=== PATIENT | female | born 1960 | race Caucasian/White ===

== ENCOUNTER 2018-10-04 16:15 | Inpatient (IN) | payer MEDICAID ==
[~2018-10-04] VITALS: Ht 175.3 cm; Wt 80.0 kg
[2018-10-04 16:21] VITALS: Ht 175.3 cm; Wt 80.0 kg
--- NOTE | 2018-10-04 16:58 | NUR ---
PT AMULATORY TO ED BED 3, STEADY GAIT, NAD NOTED.
--- NOTE | 2018-10-04 17:04 | NUR ---
LAB AT BEDSIDE.
--- NOTE | 2018-10-04 17:09 | NUR ---
XRAY AT BEDSIDE.
--- NOTE | 2018-10-04 17:16 | NUR ---
PT AMBULATED TO RESTROOM TO PROVIDE CLEAN CATCH URINE SAMPLE, SLOW AND STEADY GAIT NOTED.
[2018-10-04 17:24] LABS: BASOPHIL % 1.2 % (0-2); PLATELET COUNT 392 x10^3mcL (130-400); RED CELL DISTRIBUTION WIDTH 12.7 % (11.5-14.5)
--- NOTE | 2018-10-04 17:30 | NUR ---
DR SNOW AT BEDSIDE FOR MSE.
--- NOTE | 2018-10-04 17:32 | NUR ---
URINE DIP RESULTS REPORTED TO DR SNOW.
[2018-10-04 17:33] LABS: CALCIUM 9.7 mg/dL (8.5-10.1); CARBON DIOXIDE 23.5 mmol/L (21-32); CHLORIDE SERUM 90 mmol/L (98-107); GFR1 > 60 mL/min; GLUCOSE SERUM 440 mg/dL (74-106); POTASSIUM SERUM 3.1 mmol/L (3.5-5.1); SODIUM SERUM 129 mmol/L (136-145)
--- NOTE | 2018-10-04 17:36 | NUR ---
HGB 17.5, PRIMARY RN AWARE AND DR SNOW INFORMED OF CRITICAL.
[2018-10-04 17:40] LABS: ALBUMIN 3.2 g/dL (3.4-5.0); ALKALINE PHOSPHATASE 110 U/L (46-116); ALT/SGPT 21 U/L (14-59); AST/SGOT 16 U/L (15-37); BILIRUBIN TOTAL 0.9 mg/dL (0.20-1.00); TOTAL PROTEIN, SERUM 7.8 g/dL (6.4-8.2)
--- NOTE | 2018-10-04 17:44 | NUR ---
PT MEDICATED PER EMAR.
--- NOTE | 2018-10-04 18:00 | NUR ---
PT IS A/AX4 DENIES C/P AT THIS TIME PRIMARY NURSE IS IN ROOM WITH PT, C/L IN REACH
[2018-10-04 18:07] LABS: microscopic required? YES; urine erythrocyte 1+ (NEGATIVE)
--- NOTE | 2018-10-04 18:12 | NUR ---
PT MEDICATED PER EMAR.
--- NOTE | 2018-10-04 18:12 | NUR ---
LIGHTS TO ROOM DIMMED, AND CURTAINS CLOSED TO PROVIDE RELAXING ENVIRONMENT.
--- NOTE | 2018-10-04 18:27 | NUR ---
PT TAKEN TO CT, IV FLUIDS COMPLETED D/C PRIOR TO TRANSFER.
--- NOTE | 2018-10-04 18:39 | NUR ---
PT ON FULL CM, VS REPORTED TO DR SNOW, PT CONTINUES TO REPORT RUQ ABD PAIN. FAMILY AT BEDSIDE, IN POSITION OF COMFORT, CAROLYN RAILS RAISED FOR SAFETY.
--- NOTE | 2018-10-04 18:43 | NUR ---
DR SNOW AT BEDSIDE TO DISCUSS POC WITH PT AND FAMILY.
--- NOTE | 2018-10-04 19:01 | NUR ---
PT MEDICATED PER EMAR.
--- NOTE | 2018-10-04 19:12 | NUR ---
RECIEVED PT REPORT FROM RN, I WILL NOW ASSUME PRIMARY CARE OF PT
--- NOTE | 2018-10-04 19:14 | NUR ---
ATTEMPTED TO GIVE REPORT TO PATROL POLICE SERGEANT TO ASSUME CARE OF PT WITH NO ANSWER, TRACIE ED RN GIVEN REPORT, TO ASSUME CARE OF PT.
--- NOTE | 2018-10-04 19:37 | NUR ---
REPORT GIVEN TO ANNELIESE CARMONA TO ASSUME CARE OF PT.
--- NOTE | 2018-10-04 20:22 | NUR ---
PT WHEELED VIA ED GURNEY UPSTAIRS TO TELE FLOOR ROOM 255B FOR FURTHER CARE. PT WAS EDCORTED BY CARLOS HODGES AND TOMAS RN. NO INCIDENCE NOTED
[2018-10-04 20:25] VITALS: BP 171/115
--- NOTE | 2018-10-04 20:28 | NUR ---
RECEIVED PT FROM ED VIA DEVON. ENDORSED PT TO PRIMARY NURSE BOBBY
--- NOTE | 2018-10-04 20:30 | NUR ---
RECEIVED PT FROM MATHEW MONTOYA. PT AOX4. DENIES CHAPMAN/DIZZINESS. ON TELE #9, ST. DENIES CP/PRESSURE. DENIES SOB/DIFFICULTY BREATHING, ON RA. IV TO RAC, INTACT AND PATENT. BED IN LOWEST POSITION. CALL LIGHT WITHIN REACH. WILL CONTINUE TO MONITOR.
[2018-10-04 22:16] LABS: BASOPHIL % 0.4 % (0-2); PLATELET COUNT 365 x10^3mcL (130-400); RED CELL DISTRIBUTION WIDTH 13.1 % (11.5-14.5)
[2018-10-04 22:24] LABS: CALCIUM 9.2 mg/dL (8.5-10.1); CARBON DIOXIDE 25.3 mmol/L (21-32); CHLORIDE SERUM 95 mmol/L (98-107); CREATININE SERUM 0.9 mg/dL (0.6-1.0); GFR1 > 60 mL/min; GLUCOSE SERUM 350 mg/dL (74-106); POTASSIUM SERUM 3.7 mmol/L (3.5-5.1); SODIUM SERUM 133 mmol/L (136-145)
[2018-10-04 23:22] VITALS: BP 158/101
--- NOTE | 2018-10-04 23:33 | NUR ---
PT BP 158/101 HR 110, IVP HYDRALAZINE PRN AVAILABLE BUT INFORMED DR. TOBAR THAT IT MAY INCREASE PT HR. PER DR. TOBAR, HOLD IVP HYDRALAZINE, NO FURTHER ORDERS AT THIS TIME.
[2018-10-05] VITALS (8 sets, daily range): BP systolic 108–176; BP diastolic 56–108
--- NOTE | 2018-10-05 01:25 | NUR ---
PT HAD A SHORT RUN OF SVT, HR INCREASED TO 159. PT ASYMPTOMATIC, SLEEPING IN BED. DENIES ANY DISCOMFORT. BP 176/108 MAP 123, HR 98. DENIES CP/PRESSURE. DR. TOBAR MADE AWARE. AWAITING FURTHER ORDERS.
--- NOTE | 2018-10-05 03:26 | NUR ---
PT HAD 6 MINUTE RUN OF SVT, THEN CONVERTED BACK TO NSR, HR 94. PT ASYMPTOMATIC, SLEEPING IN BED. DENIES CP/PRESSURE. DR. TOBAR MADE AWARE. EKG ORDERED.
--- NOTE | 2018-10-05 05:16 | NUR ---
ASSUMED CARE OF PT. RESTING QUIETLY IN BED WITH EYES CLOSED, APPEARS ASLEEP, EASILY AROUSABLE. SR WITH HR 92 AT THIS TIME, PT DENIES CP OR ANY DISCOMFORT AT THIS TIME. IVF INTACT AND INFUSING VIA RAC, SITE CLEAR. CALL LIGHT WITHIN REACH. WILL CONTINUE TO MONITOR.
[2018-10-05 06:27] LABS: BASOPHIL % 0.2 % (0-2); PLATELET COUNT 363 x10^3mcL (130-400); RED CELL DISTRIBUTION WIDTH 13.2 % (11.5-14.5)
--- NOTE | 2018-10-05 07:30 | NUR ---
PT ENDORSE TO ME THIS MORNING. LAYING IN BED RESTING, AA/O X4, BREATHING EVEN AND UNLABORED ON RA, NO ACUTE RESP DISTRESS OR SOB NOTED. TELE 9 SR NOTED, DENIES ANY CP OR PRESSURE. BOWEL SOUNDS ACTIVE IN ALL FOUR QUADS, LAST BM 10/04, VOIDS FREELY, AMB. IV TO THE RAC INTACT AND PATENT, INFUSING AT 100ML/HR, NO REDNESS OR SWELLING NOTED. WILL CONTINUE TO MONITOR.
[2018-10-05 08:00] LABS: CALCIUM 8.8 mg/dL (8.5-10.1); CARBON DIOXIDE 27.2 mmol/L (21-32); CHLORIDE SERUM 100 mmol/L (98-107); CREATININE SERUM 0.7 mg/dL (0.6-1.0); GFR1 > 60 mL/min; GLUCOSE SERUM 202 mg/dL (74-106); PHOSPHOROUS 1.9 mg/dL (2.5-4.9); POTASSIUM SERUM 3.2 mmol/L (3.5-5.1); SODIUM SERUM 136 mmol/L (136-145)
--- NOTE | 2018-10-05 09:42 | NUR ---
ECHOCARDIOGRAM COMPLETED.
--- NOTE | 2018-10-05 11:30 | NUR ---
DR. RYDER MADE AWARE OF BP 175/81, HR 80, PT DENEIS ANY CP OR PRESSURE. FAMILY AT BEDSIDE. WILL CONTINUE TO MONITOR.
--- NOTE | 2018-10-05 11:54 | NUR ---
LAB CALLED TROP 0.346 DR. RYDER MADE AWARE. PT DENIES ANY CP OR PRESSURE.
--- NOTE | 2018-10-05 13:43 | NUR ---
TELE CALLED, PT HAD 12 MIN RUN OF SVT AFTER MULTIPLE ATTEMPTS OF BEARING DOWN CONVERTED BACK TO ST. CURRENT VS: 110/56 MAP 72, HR 100-103. DR. RYDER MADE AWARE. WILL CONTINUE TO MONITOR, PT DENIES ANY CP OR PRESSUR. FAMILY AT BEDSIDE.
--- NOTE | 2018-10-05 17:00 | NUR ---
PT TOLERATED 100% OF DINNER, DENIES ANY CP OR PRESSURE. WILL CONTINUE TO MONITOR.
--- NOTE | 2018-10-05 18:41 | NUR ---
NO ACUTE CHANGES AT THIS TIME, NO ACUTE RESP DISTRESS OR SOB NOTED. DENIES ANY CP OR PRESSSURE. REMAINS ON TELE 9 SR AT THIS TIME. WILL ENDORSE TO INCOMING RN.
--- NOTE | 2018-10-05 19:10 | NUR ---
RECEIVED PT FROM PREVIOUS SHIFT NURSE. PT AOX4. DENIES CHAPMAN/DIZZINESS. ON TELE #9, NSR. DENIES CP/PRESSURE. DENIES SOB/DIFFICULTY BREATHING, ON RA. IV TO RAC, INTACT AND PATENT. BED IN LOWEST POSITION. CALL LIGHT WITHIN REACH. WILL CONTINUE TO MONITOR.
[2018-10-06 01:34] LABS: AMPHETAMINE QUAL UR NONE DETECTED (See below)
--- NOTE | 2018-10-06 03:04 | NUR ---
PT RESTING IN BED. RR EVEN AND UNLABORED. IN NO ACUTE DISTRESS. CALL LIGHT WITHIN REACH. BED IN LOWEST POSITION. WILL CONTINUE TO MONITOR.
[2018-10-06 04:53] VITALS: BP 160/86
--- NOTE | 2018-10-06 06:00 | NUR ---
PT BP 160/86, HR 69. AM DOSE OF LISINOPRIL GIVEN EARLY.
[2018-10-06 06:23] LABS: CALCIUM 8.9 mg/dL (8.5-10.1); CARBON DIOXIDE 24.2 mmol/L (21-32); CHLORIDE SERUM 103 mmol/L (98-107); CHOLESTEROL 166 mg/dL (<200); CREATININE SERUM 0.8 mg/dL (0.6-1.0); GFR1 > 60 mL/min; GLUCOSE SERUM 163 mg/dL (74-106); MAGNESIUM 1.9 mg/dL (1.8-2.4); PHOSPHOROUS 2.7 mg/dL (2.5-4.9); POTASSIUM SERUM 3.2 mmol/L (3.5-5.1); SODIUM SERUM 137 mmol/L (136-145); TRIGLYCERIDES 105 mg/dL (<150)
[2018-10-06 06:29] LABS: CHOLESTEROL/HDL RATIO 4.9; HDL CHOLESTEROL 34 mg/dL (40-60)
[2018-10-06 06:38] LABS: BASOPHIL % 0.4 % (0-2); PLATELET COUNT 349 x10^3mcL (130-400); RED CELL DISTRIBUTION WIDTH 13.1 % (11.5-14.5)
--- NOTE | 2018-10-06 07:30 | NUR ---
PT ENDORSE TO ME THIS MORNING, AA/O X4 BREATHING EVEN AND UNLABORED ON RA, NO ACUTE RESP DISTRESS OR SOB NOTED. TELE 9 SR NOTED, HR 78, DENIES ANY CP OR PRESSURE. BOWEL SOUNDS ACTIVE IN ALL FOUR QUADS. IS C/O OF FEELING NAUSEOUS, WILL MEDICATED PER EMAR. VOIDS FREELY, AMB. IV TO THE RAC INTACT AND PATENT INFUSING AT 100ML/HR, NO REDNESS OR SWELLING NOTED. WILL CONTINUE TO MONITOR.
[2018-10-06 08:35] VITALS: BP 174/96
[2018-10-06 13:21] VITALS: BP 132/78
--- NOTE | 2018-10-06 14:30 | NUR ---
NEW IV TO THE R HAND PLACE/ PATENT AND INTACT.
--- NOTE | 2018-10-06 14:40 | NUR ---
PT TOLERATED 50% OF HER LUNCH. ALSO PROVIDED X2 SUGAR FREE JELLOS. FAMILY AT BEDSIDE.
--- NOTE | 2018-10-06 15:30 | NUR ---
DR. ERICKSON AT BEDSIDE TALKING WITH PATIENT AND FAMILY.
[2018-10-06 16:51] VITALS: BP 137/81
--- NOTE | 2018-10-06 18:32 | NUR ---
NO ACUTE CHANGES AT THIS TIME, NO ACUTE RESP DISTRESS OR SOB NOTED. DENIES ANY CP OR PRESSURE, REMAINS ON TELE 9 SHOWING SR, HR 79. PT IS AWARE OF STRESS TEST TOMORROW MORNING. TOLERATED 60% OF DINNER, DENIES ANY N/V AT THIS TIME. WILL ENDORSE TO INCOMING RN.
--- NOTE | 2018-10-06 19:20 | NUR ---
RECEIVED PT FROM PREVIOUS SHIFT NURSE. PT AOX4, DENIES CHAPMAN/DIZZINESS. TELE #9, NSR WITH DEPRESSED T WAVE AND PVCS, DENIES CP/PRESSURE. DENIES SOB/DIFFICULTY BREATHING, ON RA. IV TO R. HAND, INTACT AND PATENT. BED IN LOWEST POSITION. CALL LIGHT WITHIN REACH. WILL CONTINUE TO MONITOR.
[2018-10-06 20:44] VITALS: BP 130/67
--- NOTE | 2018-10-07 02:17 | NUR ---
PT RESTING IN BED. RR EVEN AND UNLABORED. IN NO ACUTE DISTRESS. CALL LIGHT WITHIN REACH. BED IN LOWEST POSITION. WILL CONTINUE TO MONITOR.
[2018-10-07 05:47] VITALS: BP 140/77
--- NOTE | 2018-10-07 06:39 | NUR ---
PT BLOOD SUGAR 213, PT NPO FOR STRESS TEST. PER JENNIFER REED TO GIVE 3 UNITS HUMULIN R.
--- NOTE | 2018-10-07 07:59 | NUR ---
RECEIVED PATIENT FROM NIGHT NURSE. AWAKE, ALERT AND ORIENTED. MONITOR SHOWING SINUS RHYTHM; RATE 70'S. NO ECTOPIES NOTED. DENIES ANY CHEST PAIN. IV INFUSING NS AT 100 ML/HR. NPO FOR STRESS TEST AT 1100.
[2018-10-07 08:52] VITALS: BP 151/91
[2018-10-07] MEDS ORDERED: LIPITOR20 MG PO (10:02)
[2018-10-07] MEDS ORDERED: COR6 PO (10:02)
[2018-10-07] MEDS ORDERED: GOOD SENSE OMEP20 MG PO (10:02)
[2018-10-07] MEDS ORDERED: GLUCOPHAGE500 MG PO (10:02)
[2018-10-07] MEDS ORDERED: LISINOPRIL10 MG PO (10:02)
[2018-10-07] MEDS ORDERED: ASPIRIN ADULT L81 M5 PO (10:03)
[2018-10-07] MEDS ORDERED: ACCU-CHEK COMB1 EACH MC (10:04)
--- NOTE | 2018-10-07 10:08 | NUR ---
AT 0950 - PATIENT C/O NAUSEA. MEDICATED WITH ZOFRAN PER EMAR. NUCLEAR MED STAFF AT BEDSIDE.
--- NOTE | 2018-10-07 10:29 | NUR ---
REPORTS SOME RELIEF OF NAUSEA. FAMILY AT BEDSIDE.
--- NOTE | 2018-10-07 11:04 | NUR ---
TAKEN TO NUCLEAR MED FOR STRESS TEST.
--- NOTE | 2018-10-07 13:28 | NUR ---
BACK IN ROOM FOLLOWING STRESS TEST. EATING LUNCH.
--- NOTE | 2018-10-07 14:40 | NUR ---
DR ERICKSON AT BEDSIDE SPEAKING WITH PATIENT.
--- NOTE | 2018-10-07 18:19 | NUR ---
AT 1630 - DR CARVALHO SPOKE WITH PATIENT AND SISTER ABOUT RESULTS OF STRESS TEST AND RECOMMENDATIONS FOR ANGIOGRAM. PATIENT STAYING IN [facility] TODAY. IV INFUSION OF NS RESUMED AT 100ML/HR. AT 1700 - BLOOD GLUCOSE LEVEL 244. GIVEN REGULAR INSULIN 6 UNITS PER EMAR. AT 1720 - BP 200/99. PATIENT GIVEN LISINOPRIL AND CARVEDILOL PER EMAR. MONITOR SHOWING SINUS RHYHTM; RATE 80'S. CONTINUING TO MONITOR.
[2018-10-07 18:42] VITALS: BP 133/76
--- NOTE | 2018-10-07 19:21 | NUR ---
SHIFT REASSESSMENT DONE.PATIENT ALERT AND ORIENTED.NOT IN RESP DISTRESS.PATIENT ALERT AND ORIENTED.MAKE NEEDS KNOWN TO STAFF.BREATHING EASY.NS AT 100 CC/ HOUR R HAND,IV SITE GOOD.TELE 9 SR.SKIN INTACT.SCD ORDERED.AMBULATORY,GEN WEAKNESS.CALL LIGHT IN REACH.
--- NOTE | 2018-10-07 20:18 | NUR ---
PM MEDS GIVEN,SWALLOWS WELL.PATIENT IVF INFUSING WELL.
[2018-10-07 20:43] VITALS: BP 134/72
[2018-10-08] VITALS (7 sets, daily range): BP systolic 133–188; BP diastolic 60–89
--- NOTE | 2018-10-08 04:52 | NUR ---
CHECKED AT INTERVALS FOR NEEDS AND SAFETY.
--- NOTE | 2018-10-08 05:59 | NUR ---
I AND O MEASURED.NO MAJOR CHANGES THIS SHIFT.WILL ENDORSE TO NEXT SHIFT.
--- NOTE | 2018-10-08 07:00 | NUR ---
REPORT RCD FROM MATHEW JASSO. PATIENT AWAKE, LYING SUPINE, NO DISTRESS NOTED. NS 100 ML/HR TO RIGHT HAND INFUSING WITHOUT COMPLICATIONS. BED LOW, CALL LIGHT WITHIN REACH. WILL MONITOR.
--- NOTE | 2018-10-08 07:30 | NUR ---
SHIFT ASSESSMENT PERFORMED AND DOCUMENTED.
[2018-10-08 08:30] LABS: PLATELET COUNT 354 x10^3mcL (130-400); RED CELL DISTRIBUTION WIDTH 13.5 % (11.5-14.5)
[2018-10-08 08:40] LABS: CALCIUM 9.2 mg/dL (8.5-10.1); CARBON DIOXIDE 24.6 mmol/L (21-32); CHLORIDE SERUM 103 mmol/L (98-107); CREATININE SERUM 0.8 mg/dL (0.6-1.0); GFR1 > 60 mL/min; GLUCOSE SERUM 204 mg/dL (74-106); POTASSIUM SERUM 3.2 mmol/L (3.5-5.1); SODIUM SERUM 138 mmol/L (136-145)
--- NOTE | 2018-10-08 11:00 | NUR ---
SPOKE WITH ROSIE JEFFREY REGARDING PATIENT'S ELEVATED BP. AFTER MORNING BP MEDICATIONS PER MAY, PATIENT'S BP 188/102 ON RECHECK. AWAITING ORDERS.
--- NOTE | 2018-10-08 12:30 | NUR ---
ROSIE JEFFREY INFORMED OF PATIENT'S REPEAT BP AFTER SECOND DOSE OF LISINOPRIL, 188/89, HR 78. AWAITING ORDERS.
--- NOTE | 2018-10-08 14:03 | NUR ---
RECHECK OF BP AFTER HYDRALAZINE BP 137/76, HR 85. FAMILY AT BEDSIDE. PATIENT IN NO DISTRESS, NO NEEDS AT THIS TIME.
--- NOTE | 2018-10-08 15:36 | NUR ---
1. Recommend continuing [facility] diet. 2. Diabetes Diet education provided.
--- NOTE | 2018-10-08 15:36 | NUR ---
Initial Nutrition Assessment: 253T/B GIDEON CARTER HR Dx: Dehydration, new onset DM PMHx: None PSHx: Cholecystectomy Labs: BG 204H, K 3.2L, A1C 10.9H, WBC 13.6H Meds: Colace, Glucophage, humulin, Lipitor, zofran Diet: CCHO PO Intake: (10/08) 90%, (10/07) lunch 40%, dinner 90%, (10/06) lunch, dinner 100% Ht: 175.26 cm (69") Wt: 80 kg (176#) BMI: 26 kg/m2 Bed scale: IBW: 145# (66 kg) %IBW: 121 UBW: 165-175# Age: 57/F Food Allergies: NKFA Skin: intact Maninder: 21 Edema: none GI: Last BM: 10/06 Per H&P, Pt is a 57 year old female with no significant PMH, came in complaining of abdominal pain and generalized weakness. Associated with frontal headache, dizziness, nausea and around 20 episodes of vomiting, with no blood, and 1 episode of watery stools on Sunday, and no blood noted. Patient states she has just been on fluid diet since Sunday. RDN Visit (10/08): Per bed huddles, patient has abnormal lexiscan, possible HLOC transfer. Problem with: N/V/D/C: none Problems with: Chewing/Swallowing: none Current appetite: fair, slowly improving Recent wt change: none %wt change: N/A Vitamin/Supplement use: none Special diet at home: regular Physical activity: Nutrition education given: Patient said that her mom had DM and so she is aware about the diabetic diet. Diabetes diet education was provided using [facility] handout on 'Type 2 Diabetes Nutrition Therapy'. Concepts like high fiber diet, label reading, types of carbohydrates and portion control were discussed. Patient verbalized understanding and did not have any questions at this time. Food-drug interactions: lipitor- avoid grapefruit Education given: Estimated Nutritional Needs Based on ideal body weight 66 kg Energy: 9770-0035 kcal/d (25-30 kcal/kg) Protein: 66-79 g/d (1.0-1.2 g/kg) - preserve LBM Fluid: 8242-9510 ml/d (1 ml/kcal) or per doctor Nutrition Diagnosis 1. Impaired nutrient utilization related to endocrine dysfunction as evidenced by A1C:10.9 Intervention 1. Recommend continuing [facility] diet. 2. Diabetes Diet education provided. Monitor/Evaluate Goal: PO intake at least 75% of estimated needs Monitor: PO intake, Labs, GI function F/U in 3-5 days as moderate risk 8/2-4
--- NOTE | 2018-10-08 18:40 | NUR ---
PATIENT BEING TRANSFERRED TO HIGHER LEVEL OF CARE AT [facility], ROOM 336B, TELE 3, STATION 2. REPORT CALLED TO MATHEW REINOSO, , RECEIVING DOCTOR DR. SHARIF. [facility] TO ATHLETE MANAGER AT 8 PM. PATIENT SIGNED TRANSFER ACKNOWLEDGEMENT AND REVIEWED DISCHARGE PACKET WITH HER. PATIENT IN NO ACUTE DISTRESS, VITAL SIGNS STABLE. SALINE LOCK TO RIGHT HAND IS PATENT.
--- NOTE | 2018-10-08 19:38 | NUR ---
REPORT GIVEN TO MATHEW ASKEW. PATIENT TO BE TRANSFERRED TO [facility] RECREATION COORDINATOR AT 8 PM. PATIENT IN NO ACUTE DISTRESS. NS 100 ML/HR INFUSING TO RIGHT HAND WITHOUT COMPLICATIONS. BED LOW, CALL LIGHT WITHIN REACH. CARE ENDORSED.
--- NOTE | 2018-10-08 19:56 | NUR ---
RECEIVED THE REPORT FROM MORNING SHIFT, PT IS A/O X4, VERBAL RESPONSIVE, DENY ANY RESPIRATORY DISTRESS, DENY ANY PAIN OR DISCOMFORT, RIGHT HAND, NO LEAKING, NO INFILTRATION. ALL ADLS ASSIST, ALL NEED MET, CALL LIGHT IN REACH, WILL CONTINUE TO MONITOR.
--- NOTE | 2018-10-08 20:49 | NUR ---
WORM GROWER CAME TO [facility]AMOND EXPERT THE PT. GAVE THE REPORT TO WORM GROWER. AND ALL TRANSFER DOCUMENTS TO WORM GROWER. PT IS A/O X4, DENY ANY RESPIRATORY DISTRESS AT THIS MOMENT, DENY ANY PAIN OR DISCOMFORT, IV AT RIGHT HAND, NO LEAKING, NO INFILTRAITON. GETTING READY TO TRANSFER.
== END 2018-10-08 20:55 | disposition short-term general hospital (02) | DRG 422 ==
LOC: ED 16:15 → DU 18:28 → MU 10-08 11:58 → DU 10-08 12:03
PROVIDERS: Emergency Medicine; Internal Medicine; ADMIT General Practice
DX: E86.0 Dehydration (principal); I21.A1 Myocardial infarction type 2; I42.9 Cardiomyopathy, unspecified; E44.0 Moderate protein-calorie malnutrition; E11.65 Type 2 diabetes mellitus with hyperglycemia; I47.1 Supraventricular tachycardia; I11.9 Hypertensive heart disease without heart failure; E87.1 Hypo-osmolality and hyponatremia; E87.6 Hypokalemia; Z68.29 Body mass index [BMI] 29.0-29.9, adult; Z79.84 Long term (current) use of oral hypoglycemic drugs
CPT/HCPCS: 82962; A9500; G0378; J0360; J1815; J2405; J2785; J7030; Q0092

== ENCOUNTER 2018-11-24 15:39 | Inpatient (IN) | payer MEDICAID ==
[~2018-11-24] VITALS: Ht 175.3 cm; Wt 78.6 kg
[~2018-11-24 15:39] MED LIST: ACCU-CHEK COMB1 EACH MC; ASPIRIN ADULT L81 M5 PO; COR6 PO; GLUCOPHAGE500 MG PO; GOOD SENSE OMEP20 MG PO; LIPITOR20 MG PO; LISINOPRIL10 MG PO
[2018-11-24 16:01] VITALS: Ht 175.3 cm; Wt 78.6 kg
--- NOTE | 2018-11-24 16:53 | NUR ---
PT PRESENTS TO THE ED WITH C/C OF VOMITTING X4 DAYS. PT STATES SHE "CAN'T KEEP ANYTHING DOWN". PT ALSO REPORTS "MILD" RIGHT LOWER QUADRANT PAIN, AT 3/10 X3 DAYS. PT STATES SHE HAS NOT HAD A BM SINCE SUN BECAUSE SHE HAS BEEN UNABLE TO EAT SINCE THE VOMITTING OCCURRED. PT DENIES INJURY OR TRAUMA TO ABDOMEN. PT HAS A HX OF DIABETES AND HIGH BP. PT IS AWAKE, LAYING IN GURNEY, AAOX4, RESP E/U, NAD NOTED. MSE COMPLETED BY DR. CHOUDHARY.
[2018-11-24 17:24] LABS: BASOPHIL % 0.1 % (0-2); PLATELET COUNT 342 x10^3mcL (130-400); RED CELL DISTRIBUTION WIDTH 13.2 % (11.5-14.5)
[2018-11-24 17:33] LABS: CALCIUM 9.7 mg/dL (8.5-10.1); CARBON DIOXIDE 27.7 mmol/L (21-32); CREATININE SERUM 1.2 mg/dL (0.6-1.0); POTASSIUM SERUM 3.3 mmol/L (3.5-5.1)
[2018-11-24 17:36] LABS: UA SPECIFIC GRAVITY >=1.030 (1.005-1.035); microscopic required? YES; urine erythrocyte 3+ (NEGATIVE)
[2018-11-24 17:38] LABS: ALBUMIN 3.5 g/dL (3.4-5.0); BILIRUBIN TOTAL 1.2 mg/dL (0.20-1.00); TOTAL PROTEIN, SERUM 8.2 g/dL (6.4-8.2)
--- NOTE | 2018-11-24 18:07 | NUR ---
PT MEDICATED PER MD ORDER. PT VERBALIZED UNDERSTANDING OF MEDICATION PRIOR TO ADMINISTRATION.
--- NOTE | 2018-11-24 18:10 | NUR ---
PT'S BP IS ELEVATED, 185/113, DR. CHOUDHARY MADE AWARE. PER DR. CHOUDHARY REEVALUATE BP IN 30 MIN.
--- NOTE | 2018-11-24 18:51 | NUR ---
PT RESTING ON ED GURNEY, RESPS E/U, NAD NOTED, CALL LIGHT WITHIN REACH, IN POSITION OF COMFORT, REPORTS A DECREASE IN NAUSEA AT THIS TIME. CAROLYN RAILS RAISED FOR SAFETY.
[2018-11-24 19:29] LABS: AMPHETAMINE QUAL UR NONE DETECTED (See below)
--- NOTE | 2018-11-24 19:30 | NUR ---
REPORT CALLED TO MATHEW ALLEN TO ASSUME CARE FOR PT.
--- NOTE | 2018-11-24 19:55 | NUR ---
PT MEDICATED PER MD ORDER. PT VERBALIZED UNDERSTANDING OF MEDICATION PRIOR TO ADMINISTRATION.
--- NOTE | 2018-11-24 19:58 | NUR ---
MATHEW ALLEN CALLED TO UPDATE HIM ON NEW MEDS ORDERED FOR PT BY DR. CHOUDHARY, INFORMED THAT MAINTENANCE FLUIDS RUNNING AT 200MLS/HR AND 8U OF HUMULIN R SQ WAS GIVEN.
--- NOTE | 2018-11-24 20:01 | NUR ---
NOTIFIED BY [employer] JANINE THAT BIRD KEEPER TIFFANY LET HER KNOW THAT PT'S CURRENT BP WAS "TOO HIGH FOR THEM TO ACCEPT ON THE FLOOR" WILL NOTIFY RESIDENT MD.
--- NOTE | 2018-11-24 20:11 | NUR ---
RECEIVED CALL BACK FROM DR. PINEDA, MADE AWARE OF BP, IV HYDRALAZINE TO BE GIVEN.
--- NOTE | 2018-11-24 20:24 | NUR ---
PT MEDICATED PER MD ORDER. PT VERBALIZED UNDERSTANDING OF MEDICATION PRIOR TO ADMINISTRATION.
--- NOTE | 2018-11-24 20:33 | NUR ---
PT'S BP WAS RECHECKED AFTER ADMINISTRATION OF 10MG OF HYDRALAZINE, BP IS NOW 145/75. CHILD PROTECTIVE SERVICES SOCIAL WORKER TIFFANY MADE AWARE, PT TO TRANSFERRED TO MED SURG.
--- NOTE | 2018-11-24 20:53 | NUR ---
PT TRANSFERRED BY EMT MARTHA, VIA GURNEY TO MED SURG. PT AWAKE, AAOX4, RESP E/U, NAD NOTED.
[2018-11-24 21:04] VITALS: BP 167/95
--- NOTE | 2018-11-24 21:07 | NUR ---
RECEIVED PT FROM ED VIA DEVON. ORIENTED PT TO ROOM AND SURROUNDINGS. IV NOTED TO LH PATENT AND INTACT. TELE 7 PLACED ON PT READING ST WITH DEPRESSED ST SEGMENT. INSTRUCTED PT ON THE USE OF CALL LIGHT FOR ASSISTANCE. ENDORSED PT TO PRIMARY NURSE TIFFANY
--- NOTE | 2018-11-24 21:25 | NUR ---
TALKED TO DR CLEMENS ABOUT PATIENTS BLOOD SUGAR OF 156, PT RECIEVED 8 UN[address] ER SO DR SAID HOLD ON THE INSULIN COVERAGE. DR CLEMENS ALSO SAID THAT SHE WANTS PT TO BE FULL LIQUID CCHO DIET FOR NOW AND THAT BROTH WOULD BE GOOD TO GIVE TO PATIENT.
--- NOTE | 2018-11-24 22:00 | NUR ---
PT PROVIDED WITH BROTH AND JELLO, PT TOLERATING WELL, WILL MONITOR
[2018-11-25] VITALS (8 sets, daily range): BP systolic 120–190; BP diastolic 63–104
--- NOTE | 2018-11-25 01:05 | NUR ---
PT REPORTS MILD NAUSEA, ADMINISTERED ZOFRAN PRN PER PHYSICIANS ORDER, WILL CONTINUE TO MONITOR
--- NOTE | 2018-11-25 04:20 | NUR ---
PT BP 189/104, PT ASYMPTOMATIC, DR CLEMENS INFORMED AND ORDERED HYDRALAZINE IV X1
--- NOTE | 2018-11-25 05:21 | NUR ---
PT RESTED IN BED SINCE ADMISSION WITH NO ACUTE DISTRESS, PTN HAD ONE EPISODE OF NAUSEA THAT RESOLVED WITH PRN ADMINISTRATION OF ZOFRAN, PT HAD EPISODES OF HYPERTENSION THAT WERE ASYMPTOMATIC AND TREATED WITH HYDRALAZINE IV. PT DENIED ANY PAIN OR SOB THROUGH SHIFT, ALL NEEDS ATTENDED TO WILL CONTINUE TO MONITOR AND ENDORSE CARE
--- NOTE | 2018-11-25 05:30 | NUR ---
PT BLOOD PRESSURE STILL 179/83 PT ASYMPTOMATIC, CONTACTED DR CLEMENS AND INFORMED HER, SHE SAID TO GIVE MORNING BP MED EARLY (COREG AND LISINOPRIL, SEE MAR)
--- NOTE | 2018-11-25 06:44 | NUR ---
TALKED TO DR VALVERDE AND INFORMED HER OF COURSE OF PATIENTS BLOOD PRESSURE READINGS AND WHAT MEDICATIONS I HAVE GIVEN HER, SHE INFORMED ME IT WAS OK FOR PATIENT TO RECIEVE SCHEDULED 0900 BP MEDS, WILL ENDORSE TO ONCOMING RN
[2018-11-25 06:47] LABS: BASOPHIL % 0.4 % (0-2); CALCIUM 8.7 mg/dL (8.5-10.1); CARBON DIOXIDE 25.3 mmol/L (21-32); CHLORIDE SERUM 100 mmol/L (98-107); CREATININE SERUM 0.9 mg/dL (0.6-1.0); GFR1 > 60 mL/min; GLUCOSE SERUM 181 mg/dL (74-106); MAGNESIUM 1.6 mg/dL (1.8-2.4); PHOSPHOROUS 2.1 mg/dL (2.5-4.9); PLATELET COUNT 320 x10^3mcL (130-400); POTASSIUM SERUM 3.1 mmol/L (3.5-5.1); RED CELL DISTRIBUTION WIDTH 13.3 % (11.5-14.5); SODIUM SERUM 136 mmol/L (136-145)
--- NOTE | 2018-11-25 07:34 | NUR ---
A+OX4, NO RESPRIATORY DISTRESS NOTED, TELE 7, DENIES N/V AT THIS TIME, TELE 7, PULSES MODERATE AND EQUAL CAROLYN, NO EDEMA NOTED, YU GOSUNDS CTA, TOELRATING RA, BOWEL SOUNDS ACTIVE, VOIDING FREELY, GENERALIZED WEAKNESS, SKIN INTACT, IV IN L HAND WITH NS @ 100 ML/HR, SITE WNL.
--- NOTE | 2018-11-25 08:58 | NUR ---
PT RESTING IN BED, NO RESPIRATORY DISTRESS NOTED, DENIES PAIN, COMPLAINING OF NAUSEA, SCHEDULED REGLAN IVP GIVEN, HYDRALAZINE PO PRN GIVEN FOR BP 173/103. CALL LIGHT WITHIN REACH.
--- NOTE | 2018-11-25 11:12 | NUR ---
PT RESTING IN BED, NO RESPIRATORY DISTRESS NOTED, DENIES PAIN, DENIES NAUSEA, CALL LIGHT WITHIN REACH.
--- NOTE | 2018-11-25 12:11 | NUR ---
PT COMPLAINING OF NAUSEA, REGLAN IVP GIVEN, NO RESPIRATORY DISTRESS NOTED, TELE7 REMOVED AND RETURNED TO [place] LIGHT WITHIN REACH.
--- NOTE | 2018-11-25 12:28 | NUR ---
DR JARAMILLO NOTIFIED OF BP /.
--- NOTE | 2018-11-25 13:25 | NUR ---
PT RESTING IN BED, NO RESPIRATORY DISTRESS NOTED, APPEARS TO BE SLEEPING, CALL LIGHT WITHIN REACH. DR JARAMILLO REMINDED THAT PT BP 190/63.
--- NOTE | 2018-11-25 14:22 | NUR ---
PT GIVEN CLONIDINE PO FOR BP 196/63, NO RESPRIATORY DISTRESS NOTED, DENIES CHEST PAIN, CALL LIGHT WITHIN REACH.
--- NOTE | 2018-11-25 16:35 | NUR ---
PT RESTING IN BED, NO RESPRIATORY DISTRESS NOTED, DENIES PAIN, COMPLAINING OF NAUSEA, REGLAN IVP GIVEN, CALL LIGHT WITHIN REACH.
--- NOTE | 2018-11-25 16:36 | NUR ---
DR JARAMILLO NOTIFIED OF BP 130/77. PER DR JARAMILLO, PT WILL NOT BE DC TODAY. PT AWARE.
--- NOTE | 2018-11-25 16:55 | NUR ---
INFORMED SISTER KORI THAT PT WILL NOT BE DC TODAY.
--- NOTE | 2018-11-25 17:17 | NUR ---
Discount pharmacy card and list to low cost medical clinics given to patient by Kelly Canchola.
--- NOTE | 2018-11-25 18:42 | NUR ---
PT RESTING IN BED, NO RESPIRATORY DISTRESS NOTED, DENIES PAIN, DENIES NAUSEA, CALL LIGHT WITHIN REACH.
--- NOTE | 2018-11-25 19:21 | NUR ---
ENDORSED CARE TO LORENZO CARMONA.
--- NOTE | 2018-11-25 19:25 | NUR ---
RECEIVED PT AWAKE ALERT AND VERBALLY RESPONSIVE.DENIES ANY PAIN AT THIS TIME.DENIES HEADACHE OR DIZZINESS.DENIES CHESTPAIN.LATEST BP 120/64 MMHG,HR 82.NO N/V NOTED AT THIS TIME.WILL CONTINUE TO MONITOR.
--- NOTE | 2018-11-26 04:35 | NUR ---
PT WITH ON AND OFF SLEEPING PATTERN.NO N/V ALL NIGHT.LOOSE STOOL X1.DENIES ANY PAIN ALL NIGHT.ALL NEEDS MET.WILL CONTINUE TO MONITOR.
[2018-11-26 04:48] VITALS: BP 152/71
--- NOTE | 2018-11-26 05:23 | NUR ---
LATEST BP 152/71 MMHG.BS THIS AM @ 159 MG/DL.WILL COVER WITH 3 UNITS REGULAR INSULIN.WILL CONTINUE TO MONITOR.
[2018-11-26 06:47] LABS: BASOPHIL % 0.7 % (0-2); PLATELET COUNT 249 x10^3mcL (130-400); RED CELL DISTRIBUTION WIDTH 13.6 % (11.5-14.5)
[2018-11-26 07:13] LABS: CALCIUM 8.4 mg/dL (8.5-10.1); CARBON DIOXIDE 25.2 mmol/L (21-32); CHLORIDE SERUM 104 mmol/L (98-107); CREATININE SERUM 0.7 mg/dL (0.6-1.0); GFR1 > 60 mL/min; GLUCOSE SERUM 159 mg/dL (74-106); MAGNESIUM 1.8 mg/dL (1.8-2.4); POTASSIUM SERUM 3.7 mmol/L (3.5-5.1); SODIUM SERUM 138 mmol/L (136-145)
--- NOTE | 2018-11-26 07:51 | NUR ---
A+OX4, NO RESPRIATORY DISTRESS NOTED, DENIES PAIN, DENIES NAUSEA, MEDSURG, PULSES MODERATE AND EQUAL CAROLYN, NO EDEMA NOTED, LUNG SOUINDS CTA, TOELRATING RA, BOWEL SOUNDS ACTIVE, VOIDING FREELY, GENERALIZED WEAKNESS, SKIN INTACT, IV IN L HAND WITH NS @ 100 ML/HR, SITE WNL.
[2018-11-26 09:23] VITALS: BP 140/69
[2018-11-26 10:17] VITALS: BP 140/69
--- NOTE | 2018-11-26 10:47 | NUR ---
PT GIVEN DC INSTRUCTIONS AND VERBALIZED UNDERSTANDING, ALL QUESTIONS AND CONCERNED ANSWERED. IV REMOVED WITH CATHETER INTACT, NO SWELLING OR ERYTHEMA TO SITE, GAUZE AND TAPE PLACED ON SITE. PT MEDSURG WITH NO TELE. PT OFF UNIT VIA WC WITH ALL BELONGINGS ESCORTED BY TELEGRAPHIC TYPEWRITER MECHANIC AND FAMILY.
== END 2018-11-26 10:51 | disposition home or self-care (01) | DRG 48 ==
LOC: ED 15:39 → DU 19:09 → MU 19:09 → DU 20:55 → MU 11-25 12:12
PROVIDERS: Emergency Medicine; ADMIT Internal Medicine
DX: E11.43 Type 2 diabetes mellitus with diabetic autonomic (poly)neuropathy (principal); N17.0 Acute kidney failure with tubular necrosis; K31.84 Gastroparesis; E11.65 Type 2 diabetes mellitus with hyperglycemia; E87.6 Hypokalemia; E87.1 Hypo-osmolality and hyponatremia; I16.0 Hypertensive urgency; E86.0 Dehydration; E87.8 Other disorders of electrolyte and fluid balance, not elsewhere classified; E78.5 Hyperlipidemia, unspecified; Z79.82 Long term (current) use of aspirin; Z68.26 Body mass index [BMI] 26.0-26.9, adult; Z79.84 Long term (current) use of oral hypoglycemic drugs
CPT/HCPCS: 36600; 82962; G0378; J0360; J1815; J2405; J2765; J3490; J7030; Q0092

== ENCOUNTER 2018-12-01 00:26 | Inpatient (IN) | payer MEDICAID ==
[~2018-12-01] VITALS: Ht 162.6 cm; Wt 83.3 kg
--- NOTE | 2018-12-01 00:42 | NUR ---
PT IN ED FOR GEN WEAKNESS, PER SISTER PT WAS RECENTLY D/C AFTER BEING ADMITTED FOR GASTROPARESIS. REPORTS WAS DECENTLY DX WITH DM. PT IS PALE AND STS IS WEAK. PER SISTER PT HAD POSSIBLE SYNCOPAL EPISODE TODAY. PT CONNECTED TO FULL CM. EKG IN PROGRESS AT THIS TIME. PT STS NO PAIN, NO DIZZINESS.
[2018-12-01 01:04] LABS: PLATELET COUNT 179 x10^3mcL (130-400); RED CELL DISTRIBUTION WIDTH 13.9 % (11.5-14.5)
[2018-12-01 01:15] LABS: CALCIUM 7.8 mg/dL (8.5-10.1); CARBON DIOXIDE 22.1 mmol/L (21-32); CREATININE SERUM 2.9 mg/dL (0.6-1.0); POTASSIUM SERUM 3.2 mmol/L (3.5-5.1)
[2018-12-01 01:17] LABS: BAND NEUTROPHIL 6 % (0-10); METAMYELOCTE 1 % (0-2); MONOCYTE 3 % (0-7); SEGMENTED NEUTROPHILS 86 % (37-75)
[2018-12-01 01:19] LABS: PLATELET MORPHOLOGY PLATELETS NORMAL; acanthocyte (spur cell) 3+; rbc morphology (normal/abnorm) ABNORMAL (NORMAL)
[2018-12-01 01:20] LABS: BILIRUBIN TOTAL 0.86 mg/dL (0.20-1.00)
[2018-12-01 01:21] LABS: ALBUMIN 2.4 g/dL (3.4-5.0); TOTAL PROTEIN, SERUM 5.6 g/dL (6.4-8.2)
[2018-12-01 02:16] LABS: T4(THYROXINE) 7.8 ug/dL (4.7-13.3)
[2018-12-01 02:17] LABS: microscopic required? YES; urine erythrocyte 3+ (NEGATIVE)
--- NOTE | 2018-12-01 02:59 | NUR ---
PATIENT IS GAGING WITH EFFORT TO SWALLOW THE POTASSIUM PILL. FAMILY REQUEST THE LIQUID. SAME WAS CHANGED TO LIQUID AND THE PATIENT WAS GIVEN ZOFRAN FIRST.
--- NOTE | 2018-12-01 04:42 | NUR ---
RECEIVED PT FROM ER, ACCOMPANIED BY MYSELF AND EMT KUMAR. ARRIVED VIA GUERNEY AND TRANSFERRED TO ICU BED 5 WITH FULL ASSIST AND ATTACHED TO FULL MANAGER CLUB AND CONTINUOUS PULSE OXIMETRY. RECEIVED PT AOX4 ABLE TO RESPOND TO COMMANDS, MAKE NEEDS KNOWN. PUPILS 4MM BRISK RESPONSE TO LIGHT B/L, PERRLA. SPEECH CLEAR, NO FACIAL DROOP NOTED.TRACHEA MIDLINE, NO DRAINAGE TO EENT. NO EENT COMPLAINTS.LUNG SOUNDS DIMINISHED BILATERALLY, CHEST RISE/FALL SYMMETRIC, E/U BREATHING, NO ACUTE RESP DISTRESS, DENIES SOB. PT ON 2LPM NASAL CANNULA INTACT TO PATIENT.S1/S2 SOUNDS, NO S/S AND PT DENIES CHEST PAIN. NSR ON MONITOR. SKIN COLOR CONSISTENT/PALE WITH ETHNICITY, PULSES MODERATE X4 EXTREMITIES, CAP REFILL <3 SEC X4 EXTREMITIES. NO EDEMA. BOLUS INFUSING FROM ER, VANCOMYCIN @ 133 ML/HR FROM ER, MAGNESIUM GTT INFUSING @ 25 ML/HR FROM ER.GEN WEAKNESS REPORTED. NO CONTRACTURES/DEFORMITIES NOTED, NO JOINT SWELLING/TENDERNESS, INTACT.HYPOACTIVE BOWEL SOUNDS X4 QUADRANTS, ABD SOFT/ROUND, BM REPORTED LAST SUNDAY SOFT BROWN BM. PT DENIES ABD PAIN OR DISCOMFORT. NO BM AT THIS TIME.PALACIO CATHETER DRAINING TO GRAVITY CLOUDY URINE, INTACT/SECURED TO PT. POOR URINE OUTPUT FROM PALACIO.SKIN INTACT, WARM/DRY TO TOUCH. BLANCHABLE REDNESS TO PT'S SACRUM, OPTIFOAM PLACED FOR PROTECTION, CDI. BED AT LOWEST SETTING, CALL LIGHT WITHIN REACH, HOB ELEVATED 30 DEGREES. WILL CONT TO MONITOR.
--- NOTE | 2018-12-01 04:42 | NUR ---
REPORT WAS GIVEN TO BERENICE: PATIENT TRANSPORTED TO ICU # [id number]
[2018-12-01 04:51] VITALS: BP 103/64
--- NOTE | 2018-12-01 05:28 | NUR ---
HOME SUPERVISOR ARIELLE AT BEDSIDE FOR BLOOD DRAW.
[2018-12-01 05:55] LABS: PLATELET COUNT 196 x10^3mcL (130-400)
[2018-12-01 06:03] LABS: BAND NEUTROPHIL 6 % (0-10); METAMYELOCTE 1 % (0-2); MONOCYTE 3 % (0-7); PLATELET MORPHOLOGY PLATELETS NORMAL; SEGMENTED NEUTROPHILS 86 % (37-75); acanthocyte (spur cell) 3+; rbc morphology (normal/abnorm) ABNORMAL (NORMAL)
[2018-12-01 06:09] LABS: CARBON DIOXIDE 22.6 mmol/L (21-32); CREATININE SERUM 2.6 mg/dL (0.6-1.0); MAGNESIUM 1.7 mg/dL (1.8-2.4); POTASSIUM SERUM 3.2 mmol/L (3.5-5.1)
[2018-12-01 06:18] LABS: AMPHETAMINE QUAL UR NONE DETECTED (See below)
--- NOTE | 2018-12-01 07:07 | NUR ---
GAVE REPORT TO ANGELICA CARMONA. UPDATES GIVEN, QUESTIONS ANSWERED. ENDORSED CARE.
--- NOTE | 2018-12-01 07:15 | NUR ---
PATIENT IS IN BED, BED IS TO THE LOWEST POSITION. PATIENTS CARDIAC MONIOR IS IN PLACE, NSR. PATIENT IS ON NASAL CANNULA, 1 L. PATIENT IS BREATHING ADEQUATLEY AND THERE ARE NO SIGNS OF RESPIRATORY DISTRESS. PATIENT HAS IV ACCESS NOTED TO LAC, AND RAC. PATIENT HAS N/S INFUSING AT THIS TIME. 125 ML/HR. PATIENTS SKIN IS INTACT. BLANCHABLE REDNESS NOTED TO SACRAL AREA, OPTIFOAM IS APPLIED FOR PROTECTION. BLE LEG SEQUENTIAL DEVICE APPLIED. HEELS ARE OFFLOADED WITH PILLOWS. BUE ARE OFFLOADED WITH PILLOWS. CALL LIGHT IS WITHIN REACH. PATIENT IS STABLE AT THIS TIME. WILL CONTINUE TO MONITOR.
[2018-12-01 07:20] VITALS: BP 102/46
[2018-12-01 11:22] VITALS: BP 105/60
[2018-12-01 13:25] LABS: CALCIUM 7.5 mg/dL (8.5-10.1); CARBON DIOXIDE 18.1 mmol/L (21-32); CREATININE SERUM 2.5 mg/dL (0.6-1.0); POTASSIUM SERUM 4.1 mmol/L (3.5-5.1)
[2018-12-01 15:43] VITALS: BP 104/48
--- NOTE | 2018-12-01 18:27 | NUR ---
PATIENT IN BED AT THIS TIME, AWAKE AND ALERT AT THIS TIME. FAMILY AT BEDSIDE. PATIENT IS FREE FROM ANY DISTRESS. WILL CONTINUE TO MONITOR.
--- NOTE | 2018-12-01 18:58 | NUR ---
REPORT GIVEN TO MATHEW NG AT THIS TIME. ALL QUESTIONS ANSWERED.
[2018-12-01 19:25] VITALS: BP 114/63
[2018-12-01 23:08] VITALS: BP 117/64
--- NOTE | 2018-12-02 00:03 | NUR ---
DR. ROSALES AT BEDSIDE FOR ASSESSMENT. PER DR. ROSALES D/C VANCOMYCIN BY PHARMACY AND GET UROLOGY ON BOARD IN CARE. RELAYED INFORMATION TO DR. TOBAR.
--- NOTE | 2018-12-02 00:30 | NUR ---
PT REQUESTING TO REMOVE NASAL CANNULA. EDUCATED PT ON OXYGEN THERAPY AND VITAL SIGNS. PT SATURATING @ 96%, NASAL CANNULA TITRATED OFF AT THIS TIME.
[2018-12-02 03:05] VITALS: BP 110/62
--- NOTE | 2018-12-02 04:46 | NUR ---
ELECTRICAL SIGN WIRER HELPER ARIELLE AT BEDSIDE FOR BLOOD DRAW.
[2018-12-02 05:18] LABS: PLATELET COUNT 163 x10^3mcL (130-400); RED CELL DISTRIBUTION WIDTH 14.3 % (11.5-14.5)
[2018-12-02 05:33] LABS: CARBON DIOXIDE 19.5 mmol/L (21-32); CREATININE SERUM 2.4 mg/dL (0.6-1.0); PHOSPHOROUS 2.1 mg/dL (2.5-4.9); POTASSIUM SERUM 3.1 mmol/L (3.5-5.1)
[2018-12-02 05:37] LABS: BAND NEUTROPHIL 3 % (0-10); MONOCYTE 4 % (0-7); SEGMENTED NEUTROPHILS 83 % (37-75)
[2018-12-02 05:41] LABS: acanthocyte (spur cell) 2+; rbc morphology (normal/abnorm) ABNORMAL (NORMAL)
[2018-12-02 05:42] LABS: PLATELET MORPHOLOGY PLATELETS NORMAL
--- NOTE | 2018-12-02 07:15 | NUR ---
GAVE REPORT TO SILVA, CATERING CHEF. UPDATES GIVEN, QUESTIONS ANSWERED. ENDORSED CARE.
[2018-12-02 07:51] VITALS: Ht 162.6 cm; Wt 83.3 kg
--- NOTE | 2018-12-02 10:06 | NUR ---
PATIENT ROUNDS WITH DR. STARR AND RESIDENTS. CHARGE NURSE AND PRIMARY NURSE AT BEDSIDE. UPDATES PROVIDED AND POC DISCUSSED. WILL CONTINUE TO MONITOR.
[2018-12-02 10:27] VITALS: BP 123/77
--- NOTE | 2018-12-02 13:46 | NUR ---
1. Recommend CCHO, cardiac diet. 2. Glucerna BID. Discussed recommendations with Dr. Yoder
--- NOTE | 2018-12-02 13:46 | NUR ---
Initial Nutrition Assessment: IC05/ GIDEON CARTER HR Dx: Sepsis, generalized weakness, UTI PMHx: DM, diabetic gastroparesis, HTN, Cardiomyopathy, NSTEMI, paroxysmal SVT, HLD PSHx: Cholecystectomy Labs: NA 130L, K 3.1L, BG 122H, BUN 38H, CREAT 2.4H, WBC 35.7H Meds: Colace, D 50%, humulin, Lipitor, Zofran, zosyn Diet: CCHO PO Intake: (12/01) dinner 10%, lunch, breakfast 0% Ht: 162.56 cm (64") Wt: 83.3 kg (183#) BMI: 31.5 kg/m2 Bed scale: 83.3 kg IBW: 120# (55 kg) %IBW: 153 UBW: 85 kg Age: 58/F Food Allergies: NKFA Skin: intact Maninder: 16 Edema: none GI: Last BM: 12/02 Per H&P, Pt is a 58 year old female with PMH of DM, diabetic gastroparesis, HTN, Cardiomyopathy, NSTEMI, paroxysmal SVT, HLD, came in with complaints of generalized weakness. RDN Visit (12/02): Patient was alert and oriented and said that she ate cream of wheat for breakfast this morning. She said that her appetite is slowly starting to come back. Patient was recently diagnosed with diabetes and education was provided during recent admission. Problem with: N/V/D/C: none Problems with: Chewing/Swallowing: none Current appetite: fair Recent wt change: none %wt change: n/a Vitamin/Supplement use: none Special diet at home: diabetic Physical activity: sedentary Nutrition education given: PO was encouraged. Food-drug interactions: lipitor- avoid grapefruit Education given: no Estimated Nutritional Needs Based on current body weight 83.3 kg Energy: 0446-3284 kcal/d (25-30 kcal/kg) Protein: 83-99 g/d (1.0-1.2 g/kg)- preserve LBM Fluid: 0077-3296 ml/d (1 ml/kcal) or per doctor Nutrition Diagnosis 1. Inadequate oral intake related to poor appetite as evidenced by documented PO <75% Intervention 1. Recommend CCHO, cardiac diet. 2. Glucerna BID. Discussed recommendations with Dr. Yoder Monitor/Evaluate Goal: PO intake at least 75% of estimated needs Monitor: PO intake, Labs, GI function F/U in 3-5 days as moderate risk
--- NOTE | 2018-12-02 15:39 | NUR ---
pt recieved this a.m. incontinent of stool, didnt realize she had passed large bm in bed but pt cleaned and repositioned self in bed/pt denies abd pain, pt vs stable, no sediment in borrego bag, but continue to observe/mw 1500 pt hr increased to 150s for a few minutes, pt had no symptoms, no sob no dizziness, no chest pain/pt in zero distress, educated to do exercise in bed, will get pt oob shortly//mw
--- NOTE | 2018-12-02 16:06 | NUR ---
Discount pharmacy card and list to low cost medical clinics given to patient by Kelly Canchola.
--- NOTE | 2018-12-02 17:19 | NUR ---
pt transferred to room 204b as ordered, pt able to go by wheelchair/vs stable/report to [facility]//jennifer
[2018-12-02 17:30] VITALS: BP 129/85
--- NOTE | 2018-12-02 17:31 | NUR ---
PT TRANSFERRED FROM ICU . RECEIVED REPORT FROM RONIT CARMONA. PT LYING IN BED WITH FAMILY AT BEDSIDE. IN NO APPARENT DISTRESS. PT A&O X 4, LUNGS CTA BILAT, DENIES ANY PAIN AT THIS TIME, PALACIO IN PLACE DRAINING TO GRAVITY YELLOW URINE, RADIAL PULSE STRONG BILAT, PEDAL PULSE MODERATE BILAT, PT ON ROOM AIR AT 97%, SKIN INTACT, WARM AND PINK. IV ON RAC AND LAC PATENT AND INTACT. ACTIVE BOWEL SOUND IN ALL 4 QUADRANTS, LBM 12/01/18 BED IN LOW POSITION, INSTRUCTED TO USE CALL LIGHT . ALL QUESTIONS AND CONCERNS ADDRESSED. WILL CONTINUE TO MONITOR.
--- NOTE | 2018-12-02 17:38 | NUR ---
REPORTED TO DR SHAFER PT ON TELE 33 READ[address] A FIB . DR SHAFER TO ASSESS PT. PER DR SHAFER WILL ORDER STAT EKG. WILL PROCEED ORDERED. ALL NEEDS ATTENDED TO WILL CONTINUE TO MONITOR.
--- NOTE | 2018-12-02 18:12 | NUR ---
D/C PALACIO CATHETER PER DR ORDER. PT TOLERATED WELL. INSTRUCTED PT TO USE CALL LIGHT FOR ASSISTANCE TO BATHROOM WHEN NEEDED. CALL LIGHT WITH IN REACH, BED IN LOW POSITION. WILL CONTINUE TO MONITOR.
--- NOTE | 2018-12-02 19:07 | NUR ---
PATIENT RESTING COMFORTABLY IN BED AT THIS TIME. NO APPARENT DISTRESS OR DISCOMFORT NOTED. IV TO RAC AND LAC PATENT AND INTACT. ALL QUESTIONS AND CONCERNS ADDRESSED. ALL NEEDS ATTENDED TO. SAFETY PRECAUTIONS MAINTAINED. WILL ENDORSE ALL CARE TO COAL CHEMIST NURSE
--- NOTE | 2018-12-02 19:10 | NUR ---
RECEIVED PT IN BED COMFORTABLY RESTING.LUNG SOUND CTA. BREATHING EVEN AND UNLABORED. DENIES ANY CP AND PRESSURE AT THIS TIME. TELE# 33 ST. IV SITE PATENT AND INTACT. SKIN INTACT. AMBULATORY WITH MINIMAL ASSIST. BED IN LOWEST POSITION,CALL LIGHT WITHIN REACH. WILL CONTINUE TO MONITOR.
--- NOTE | 2018-12-02 20:10 | NUR ---
HR 135-155. DR RAMIREZ AWARE.
--- NOTE | 2018-12-02 20:15 | NUR ---
RECHECKED HR 89-95. PT DENIES ANY CP.
[2018-12-02 21:19] VITALS: BP 135/79
--- NOTE | 2018-12-03 02:31 | NUR ---
SPOKE TO DR ALCARAZ TO CLARIFY HIS ORDER FOR TORADOL 30MG IVP. PER DR PEREZ ITS OKAY TO GIVE ONE TIME DOSE.WILL CONTINUE TO MONITOR.
--- NOTE | 2018-12-03 05:23 | NUR ---
PT APPEARS TO BE SLEEPING. NO DISTRESS NOTED. DENIES PAIN AT THIS TIME. BED IN LOWEST POSITION,CALL LIGHT WITHIN REACH. WILL CONTINUE TO MONITOR.
[2018-12-03 05:27] VITALS: BP 124/73
[2018-12-03 06:28] LABS: PLATELET COUNT 170 x10^3mcL (130-400)
[2018-12-03 06:40] LABS: CALCIUM 7.6 mg/dL (8.5-10.1); CARBON DIOXIDE 18.9 mmol/L (21-32); MAGNESIUM 1.8 mg/dL (1.8-2.4); PHOSPHOROUS 2.5 mg/dL (2.5-4.9); POTASSIUM SERUM 3.1 mmol/L (3.5-5.1)
--- NOTE | 2018-12-03 07:05 | NUR ---
RECEIVED BEDSIDE REPORT FROM GROCERY MANAGER NURSE AT THIS TIME. PATIENT RESTING COMFORTABLY IN BED. NO APPARENT DISTRESS OR DISCOMFORT NOTED. BREATHING EVEN AND UNLABORED. NO RESPIRATORY DISTRESS OR DISCOMFORT NOTED. PATIENT DENIES CHEST PAIN/PRESSURE AT THIS TIME. IV TO RAC AND LAC PATENT AND INTACT. ALL QUESTIONS AND CONCERNS ADDRESSED. ALL NEEDS ATTENDED TO. WILL CONTINUE TO MONITOR
--- NOTE | 2018-12-03 07:13 | NUR ---
CARE ENDORSED TO DAY NURSE
[2018-12-03 07:40] LABS: RED CELL DISTRIBUTION WIDTH 14.8 % (11.5-14.5)
[2018-12-03 09:11] VITALS: BP 150/72
--- NOTE | 2018-12-03 10:00 | NUR ---
MORNING MEDICATIONS ADMINISTERED. PATIENT TOLERATED WELL. NO APPARENT ADVERSE EFFECTS. ALL NEEDS ATTENDED TO.
--- NOTE | 2018-12-03 11:56 | NUR ---
PATIENT BLOOD SUGAR 173. 3 UNITS OF INSULIN COVERAGE REQUIRED. ALL NEEDS ATTENDED TO. WILL CONTINUE TO MONITOR
[2018-12-03 12:13] VITALS: BP 147/83
[2018-12-03 12:25] LABS: BAND NEUTROPHIL 3 % (0-10); BASOPHIL 0 % (0-2); SEGMENTED NEUTROPHILS 91 % (37-75)
[2018-12-03 12:27] LABS: PLATELET MORPHOLOGY LARGE PLATELET SEEN; rbc morphology (normal/abnorm) ABNORMAL (NORMAL)
[2018-12-03 17:05] VITALS: BP 155/86
--- NOTE | 2018-12-03 18:23 | NUR ---
PATIENT RESTING COMFORTABLY IN BED AT THIS TIME. NO APPARENT DISTRESS OR DISCOMFORT NOTED. IV PATENT AND INTACT. ALL QUESTIONS AND CONCERNS ADDRESSED. ALL NEEDS ATTENDED TO. SAFETY PRECAUTIONS MAINTAINED. WILL ENDORSE ALL CARE TO SKILLED NURSING PROFESSIONAL NURSE
--- NOTE | 2018-12-03 19:00 | NUR ---
RECEIVED PT IN BED COMFORTABLY RESTING WITH FAMILY AT BEDSIDE. NO ACUTE RESPIRATORY DISTRESS NOTED. DENIES ANY PAIN AT THIS TIME. SALINE LOCK TO RAC,LAC PATENT AND INTACT. AMBULATORY WITH MINIMAL ASSISTANCE TO BATHROOM. BED IN LOWEST POSITION,SIDERAILS UP. CALL LIGHT WITHIN REACH. WILL CONTINUE TO MONITOR.
[2018-12-03 20:33] VITALS: BP 140/77
--- NOTE | 2018-12-04 04:28 | NUR ---
PT REMAINED ASLEEP.NO ACUTE RESPIRATORY DISTRESS NOTED. NO S/S OF PAIN AT THIS TIME. BED IN LOWEST POSITION,CALL LIGHT WITHIN REACH. WILL CONTINUE TO MONITOR.
[2018-12-04 06:37] LABS: PLATELET COUNT 207 x10^3mcL (130-400)
[2018-12-04 06:42] VITALS: BP 150/87
[2018-12-04 06:48] LABS: CALCIUM 8.3 mg/dL (8.5-10.1); CREATININE SERUM 1.9 mg/dL (0.6-1.0); MAGNESIUM 1.6 mg/dL (1.8-2.4); PHOSPHOROUS 2.3 mg/dL (2.5-4.9); POTASSIUM SERUM 3.5 mmol/L (3.5-5.1)
--- NOTE | 2018-12-04 07:25 | NUR ---
RECEIVED PATIENT RESTING IN BED AWAKE/ALERT, NO DISTRESS NOTED, DENIES PAIN. REPORT TIRED FROM NOT ABLE TO SLEEP LAST NIGHT. TELE #33 SR W/ HR 95 NOTED. IV TO RAC AND LAC INTACT AND SL NOTED. POC EXPLAINED. CONT TO MONITOR.
--- NOTE | 2018-12-04 07:31 | NUR ---
CARE ENDORSED TO DAY NURSE
[2018-12-04 07:36] LABS: BASOPHIL % 0 % (0-2); RED CELL DISTRIBUTION WIDTH 14.6 % (11.5-14.5)
[2018-12-04 08:01] VITALS: BP 151/92
--- NOTE | 2018-12-04 09:04 | NUR ---
PATIENT SAT UP IN BED NO COMPLAIN, PO MED ADMINISTERED, REFUSED COLACE PATIENT REPORT HAVE NO PROBLEM WITH BM. PATIENT TOOK ALL HER PILLS NO PROBLEM NOTED. MAGOXIDE 1 TAB PO ADMINISTERED FOR MG 1.6 ORDER. NEED MET. CALL LIGHT IN REACH.
[2018-12-04 11:41] VITALS: BP 144/60
--- NOTE | 2018-12-04 12:00 | NUR ---
PATIENT RESTING IN BED NO COMPLAINS, GAVE 6 UNITS REGULAR INSULIN SQ FOR BS 239. LEVAQUIN IVPB INFUSING TO LAC IV PATENT AND FLUSH WELL, NO REACTION NOTED. NEED MET. CALL LIGHT WITHIN REACH.
[2018-12-04] MEDS ORDERED: LEVAQUIN750 MG PO (12:22)
[2018-12-04 13:24] VITALS: BP 144/60
--- NOTE | 2018-12-04 13:51 | NUR ---
PATIENT RESTING IN BED NO COMPLAIN, ALREADY DRESS AND STATED READY TO GO. DISCHARGE INSTRUCTIONS AND PRESCRIPTION EXPLAINED. INSTRUCT TO F/U WITH PCP SCHEDULED. PATIENT VERBALIZE UNDERSTAND. REMOVED LAC AND RAC IV W/ CATHETER CATHETER INTACT. TELE #33 GAVE TO SUDHAKAR DAVIES. PATIENT IS WAITING FOR HER RIDE. INSTRUCT TO CALL WHEN FAMILY HERE TO MOUNTER SOUSAPHONES.
== END 2018-12-04 15:40 | disposition home or self-care (01) | DRG 720 ==
LOC: ED 00:26 → IC 03:14 → DU 12-02 16:59
PROVIDERS: Emergency Medicine; General Practice; ADMIT Internal Medicine
DX: A41.9 Sepsis, unspecified organism (principal); N17.0 Acute kidney failure with tubular necrosis; E43 Unspecified severe protein-calorie malnutrition; E11.43 Type 2 diabetes mellitus with diabetic autonomic (poly)neuropathy; D68.69 Other thrombophilia; K31.84 Gastroparesis; I24.8 Other forms of acute ischemic heart disease; E83.42 Hypomagnesemia; E11.65 Type 2 diabetes mellitus with hyperglycemia; I95.9 Hypotension, unspecified; E87.1 Hypo-osmolality and hyponatremia; N39.0 Urinary tract infection, site not specified; E86.0 Dehydration; N13.2 Hydronephrosis with renal and ureteral calculous obstruction; I11.9 Hypertensive heart disease without heart failure; E87.6 Hypokalemia; K21.9 Gastro-esophageal reflux disease without esophagitis; E78.5 Hyperlipidemia, unspecified; I25.10 Atherosclerotic heart disease of native coronary artery without angina pectoris; I25.2 Old myocardial infarction; Z68.28 Body mass index [BMI] 28.0-28.9, adult; Z79.84 Long term (current) use of oral hypoglycemic drugs
CPT/HCPCS: 82962; 83880; G0378; J1815; J1885; J1956; J2405; J2543; J3370; J3475; J3480; J7030; J7050; Q0092

== ENCOUNTER 2020-02-21 13:27 | Emergency (ER) | payer OTHER ==
[~2020-02-21] VITALS: Ht 162.6 cm; Wt 82.1 kg
[~2020-02-21 13:27] MED LIST changes: +LEVAQUIN750 MG PO
[2020-02-21 13:55] VITALS: BP 160/93; Ht 162.6 cm; Wt 82.1 kg
== END 2020-02-21 14:08 | disposition left against medical advice (07) ==
LOC: ED 13:27
DX: Z53.21 Procedure and treatment not carried out due to patient leaving prior to being seen by health care provider (principal)
CPT/HCPCS: 82962